=== PATIENT | male | born 1975 | race African-American/Black ===

== ENCOUNTER 2021-02-28 11:18 | Emergency (ER) | payer BC ==
[~2021-02-28] VITALS: Ht 172.7 cm; Wt 68.0 kg
[2021-02-28] MEDS ORDERED: IBUP-1653 PO (11:37)
[2021-02-28] MEDS ORDERED: ONDANSETRON HCL 4MG/2ML INJ IV STA (11:52)
[2021-02-28] MEDS ORDERED: MORPHINE SULFATE 4 MG/ML CPJ (NOT FOR IM USE) IV STA (11:52)
[2021-02-28] MEDS ORDERED: SODIUM CHLORIDE 0.9% 1,000 ML IV ONE (12:00)
[2021-02-28 12:14] LABS: BASOPHILS % 0.9 % (0.0-2.0); EOSINOPHILS % 0.1 % (0.0-5.0); HEMATOCRIT. 43.6 % (42.0-52.0); HEMOGLOBIN. 15.3 g/dL (14.0-18.0); LYMPHOCYTES % 22.1 % (20.0-50.0); MEAN CORPUSCULAR HEMOGLOBIN 33.7 pg (28.0-32.0); MEAN CORPUSCULAR VOLUME 96.1 fL (80.0-94.0); MEAN PLATELET VOLUME 8.4 fl (7.4-10.4); MONOCYTES % 4.9 % (2.0-8.0); PLATELET 281 x1000/uL (130-400); RED BLOOD CELL COUNT 4.53 mill/uL (4.7-6.1)
[2021-02-28 12:20] LABS: CHLORIDE 111 mEq/L (98-107)
[2021-02-28 12:42] LABS: CLARITY URINE CLEAR (CLEAR); COLOR URINE YELLOW (YELLOW); KETONES URINE NEGATIVE (NEGATIVE); LEUKOCYTE ESTERASE URINE NEGATIVE (NEGATIVE); NITRITE URINE NEGATIVE (NEGATIVE); OCCULT BLOOD URINE NEGATIVE (NEGATIVE); PROTEIN URINE NEGATIVE (NEGATIVE); SPECIFIC GRAVITY URINE 1.019 (1.005-1.030); UROBILINOGEN URINE 0.2 E.U./dL (0.2-1.0)
[2021-02-28] MEDS ORDERED: BUTA1CAP45 MT (14:04)
[2021-02-28] MEDS ORDERED: FC MT (14:04)
[2021-02-28] MEDS ORDERED: ONDA4TAB5 MT (14:04)
[2021-02-28 14:35] VITALS: BP 128/82
== END 2021-02-28 14:50 | disposition home or self-care (01) ==
LOC: ER 11:18
DX: R51.9 Headache, unspecified (principal); R11.2 Nausea with vomiting, unspecified; R55 Syncope and collapse; Z79.899 Other long term (current) drug therapy
CPT/HCPCS: 36415; 70450; 71045; 80053; 81003; 85025; 93005; 96374; 96375; 99285; J2270; J2405; J7030